=== PATIENT | male | born 1985 | race Caucasian/White ===

== ENCOUNTER 2017-11-06 21:26 | Emergency (ER) | payer OTHER ==
[~2017-11-06] VITALS: Ht 180.3 cm; Wt 71.7 kg
[2017-11-06 22:02] VITALS: Ht 180.3 cm; Wt 71.7 kg
[2017-11-06 23:09] VITALS: BP 126/80
== END 2017-11-06 23:09 | disposition home or self-care (01) ==
LOC: ED 21:26
DX: M54.42 Lumbago with sciatica, left side (principal); M54.41 Lumbago with sciatica, right side; G89.29 Other chronic pain
CPT/HCPCS: J1100; J1885

== ENCOUNTER 2018-02-20 19:43 | Emergency (ER) | payer OTHER ==
[~2018-02-20] VITALS: Ht 180.3 cm; Wt 74.4 kg
[2018-02-20 20:40] VITALS: Ht 180.3 cm; Wt 74.4 kg
[2018-02-20 22:45] VITALS: BP 131/98
== END 2018-02-20 22:45 | disposition home or self-care (01) ==
LOC: ED 19:43
DX: M54.40 Lumbago with sciatica, unspecified side (principal); Z98.890 Other specified postprocedural states
CPT/HCPCS: J1885

== ENCOUNTER 2018-08-23 21:58 | Emergency (ER) | payer MEDICAID ==
[~2018-08-23] VITALS: Ht 180.3 cm; Wt 74.8 kg
[2018-08-23 22:31] VITALS: Ht 180.3 cm; Wt 74.8 kg
[2018-08-24 00:35] VITALS: BP 122/75
== END 2018-08-24 00:35 | disposition home or self-care (01) ==
LOC: ED 21:58
DX: M54.5 Low back pain (principal); G89.29 Other chronic pain; Z98.890 Other specified postprocedural states
CPT/HCPCS: J1885

== ENCOUNTER 2019-04-04 17:02 | Emergency (ER) | payer MEDICAID | END 2019-04-04 18:37 | disposition home or self-care (01) | LOC: ED 17:02 | DX: F11.10 Opioid abuse, uncomplicated (principal); Z98.890 Other specified postprocedural states | CPT/HCPCS: J1885 ==